=== PATIENT | female | born 1985 | race Caucasian/White ===

== ENCOUNTER 2017-08-10 09:29 | Emergency (ER) | payer OTHER, SELFPAY ==
[2017-08-10] MEDS ORDERED: ASPIRIN 81 MG CHEWABLE TABLET ONE (10:15)
[2017-08-10 10:35] LABS: Absolute Lymphocytes (CBC) 2.1 K/uL (0.7-4.9); Absolute Monocytes 0.5 K/uL (0.1-1.3); Absolute Neutrophil 5.7 K/uL (1.8-8.0); Basophils % 0.8 % (0-1.3); Eosinophils % 1.8 % (0-4.4); Hematocrit 45.3 % (36.0-45.0); Lymphocytes % 24.5 % (15.3-44.8); MCH 30.7 pg (27.0-35.0); MCV 91.3 fL (80-100); MPV 9.7 fL (7.6-11.3); Monocytes % 6.1 % (3.3-12.3); RBC Red Blood Cell Count 4.96 M/uL (3.86-4.86)
--- NOTE | 2017-08-10 10:38 | RAD REPORT ---
EXAM DESCRIPTION: RAD - Chest Single View - 08/10/2017 10:09 am CLINICAL HISTORY: Chest pain. COMPARISON: None. FINDINGS: Portable technique limits examination quality. The lungs are grossly clear. The heart is normal in size. No displaced fractures. IMPRESSION: No acute intrathoracic process suspected.
[2017-08-10 10:42] LABS: Protime INR 0.97
[2017-08-10 10:46] LABS: Bicarbonate 26 mEq/L (21-31); Glucose Level 91 mg/dL (65-120); Potassium 3.9 mEq/L (3.6-5.0); Sodium Level 136 mEq/L (135-145)
[2017-08-10 10:52] LABS: ALT/SGPT 13 IU/L (10-60); AST/SGOT 17 IU/L (10-42); Albumin 4.3 g/dL (3.2-5.5); Alkaline Phosphatase 55 IU/L (42-121); BUN Blood Urea Nitrogen 13 mg/dL (6-20); Bilirubin Direct 0.1 mg/dL (0-0.2); Bilirubin Total 0.7 mg/dL (0.3-1.2); Glomerular Filtration Rate > 90 mL/min (=/>90); Magnesium 1.8 mg/dL (1.8-2.5); Protein, Total 8.2 g/dL (6.0-8.3)
[2017-08-10] MEDS ORDERED: MAGNE/ALUM HYDROXD 30 ML UCUP ONE (13:16)
[2017-08-10] MEDS ORDERED: LIDOCAINE VISCOUS 2% SOLN 15 ML UDC ONE (13:16)
--- NOTE | 2017-08-10 13:54 | ER ---
Nurse's Notes [facility] Name: Joe Manley Age: 32 yrs Sex: Female : 1985 Arrival Date: 08/10/2017 Time: 09:30 Bed 14 Private MD: Diagnosis: Chest pain, unspecified Presentation: 08/10 09:50 Presenting complaint: Patient states: "at 9pm last night I felt a burning in my chest ss that lasted for about three seconds, followed by a pressure that seems to radiate down my L arm and into my shoulders.". Transition of care: patient was not received from another setting of care. Onset of symptoms was August 09, 2017 at 20:00. Care prior to arrival: None. 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 - Social history:: Smoking status: Patient uses tobacco products, smokes one-half pack cigarettes per day. Screenin:50 Abuse screen: Denies threats or abuse. Nutritional screening: No deficits noted. rb1 Tuberculosis screening: No symptoms or risk factors identified. Fall Risk None identified. Assessment: 09:50 General: Appears in no apparent distress. comfortable, Behavior is calm, cooperative, rb1 Denies fever. Pain: Complains of pain in mid-sternal area Pain radiates to left arm and between shoulder blades Pain currently is 7 out of 10 on a pain scale. Pain began 2100 last night. Neuro: Level of Consciousness is awake, alert, obeys commands, Oriented to person, place, time, situation. Cardiovascular: Capillary refill < 3 seconds is brisk in bilateral fingers. Respiratory: Airway is patent Respiratory effort is even, unlabored, Respiratory pattern is regular, symmetrical. GI: Reports nausea. : No signs and/or symptoms were reported regarding the genitourinary system. Derm: Skin is pink, warm \\T\\ dry. 10:49 Reassessment: Patient appears in no apparent distress at this time. No changes from rb1 previously documented assessment. 11:46 Reassessment: Patient appears in no apparent distress at this time. Patient and/or rb1 family updated on plan of care and expected duration. Pain level reassessed. Patient is alert, oriented x 3, equal unlabored respirations, skin warm/dry/pink. 12:47 Reassessment: Patient appears in no apparent distress at this time. No changes from rb1 previously documented assessment. Pt. updated on the POC. 13:45 Reassessment: Patient appears in no apparent distress at this time. Patient and/or rb1 family updated on plan of care and expected duration. Pain level reassessed. Patient is alert, oriented x 3, equal unlabored respirations, skin warm/dry/pink. Vital Signs: 09:50 BP 121 / 78; Pulse 68; Resp 17; Temp 98.0(O); Pulse Ox 100% on R/A; Weight 68.04 kg rb1 (R); Height 5 ft. 3 in. (160.02 cm) (R); Pain 7/10; 10:30 BP 119 / 84; Pulse 70; Resp 16; Pulse Ox 98% on R/A; Pain 7/10; rb1 11:30 BP 116 / 78; Pulse 66; Resp 12; Pulse Ox 100% on R/A; rb1 12:30 BP 119 / 86; Pulse 80; Resp 17; Pulse Ox 99% on R/A; rb1 13:00 BP 127 / 85; Pulse 74; Resp 13; Pulse Ox 100% on R/A; rb1 14:00 BP 132 / 90; Pulse 81; Resp 16; Pulse Ox 96% on R/A; rb1 09:50 Body Mass Index 26.57 (68.04 kg, 160.02 cm) [facility] ED Course: 09:30 Patient arrived in ED. as 09:46 Reilly Vegas PA is PHCP. jr8 09:46 Yrn Dunham MD is Attending Physician. jr8 09:50 Patient has correct armband on for positive identification. Placed in gown. Bed in low rb1 position. Call light in reach. Side rails up X 1. shelter monitor on. Pulse ox on. NIBP on. 09:50 Missed attempt(s): 22 gauge in right antecubital area. Patient maintains SpO2 rb1 saturation greater than 95% on room air. 09:51 Triage completed. ss 09:53 Renita Rosenthal, RN is Primary Nurse. rb1 09:56 Arm band placed on right wrist. ss 10:04 EKG done, by refinery technician. reviewed by Reilly ANDINO. tc 10:05 X-ray completed. Portable x-ray completed in exam room. Patient tolerated procedure sw well. 10:09 XRAY Chest (1 view) In Process Unspecified. EDMS 10:31 Basic Metabolic Panel Sent. ag 10:31 Basic Metabolic Panel Sent. ag 10:31 BNP Sent. ag 10:31 CBC with Diff Sent. ag 10:31 LFT's Sent. ag 10:31 Magnesium Sent. ag 10:31 PT-INR Sent. ag 10:31 Ptt, Activated Sent. ag 10:31 Troponin (emerg Dept Use Only) Sent. ag 10:32 Inserted saline lock: 20 gauge in left antecubital area, using aseptic technique. Blood ag collected. 13:53 Hong Mustafa MD is Referral Physician. jr8 14:16 No provider procedures requiring assistance completed. IV discontinued, intact, rb1 bleeding controlled, No redness/swelling at site. Pressure dressing applied. Administered Medications: 09:56 Drug: Aspirin Chewable Tablet 324 mg Route: PO; rb1 10:30 Follow up: Response: No adverse reaction; Pain is unchanged, physician notified rb1 12:55 Drug: GI Cocktail without - (Maalox Suspension 30 ml, Lidocaine Liquid 2 % 15 rb1 ml) Route: PO; 13:20 Follow up: Response: No adverse reaction rb1 Outcome: 13:53 Discharge ordered by . jr8 14:16 Discharged to home ambulatory. rb1 14:16 Condition: stable 14:16 Discharge instructions given to patient, Instructed on discharge instructions, follow up and referral plans. medication usage, Demonstrated understanding of instructions, follow-up care, Prescriptions given X none 14:17 Patient left the ED. rb1 Signatures: Dispatcher [employer] Tina Forbes Shelby, RN RN Reilly Vegas PA PA jr8 Tatiana Espinoza, line puller EKG Ttc Wynne, Susie Alvarez Rebecca, RN RN rb1 Corrections: (The following items were deleted from the chart) 14:13 12:45 Blood Glucose: Blood Glucose Reading=87 mg/dL. rb1 rb1
--- NOTE | 2017-08-10 13:54 | EDPHYS ---
Physician Documentation [facility] Name: Joe Manley Age: 32 yrs Sex: Female : 1985 Arrival Date: 08/10/2017 Time: 09:30 Bed 14 Private MD: ED Physician Yrn Dunham HPI: 08/10 10:11 This 32 yrs old Female presents to ER via Ambulatory with complaints of Chest jr8 Pain. 10:11 The patient or guardian reports chest pain that is located primarily in the substernal jr8 area. The pain radiates to the left arm, left jaw. Associated signs and symptoms: Pertinent positives: nausea. The chest pain is described as burning, a pressure. Duration: The patient or guardian reports a single episode, that is still ongoing. Modifying factors: The symptoms are alleviated by nothing. the symptoms are aggravated by nothing. Severity of pain: At its worst the pain was moderate in the emergency department the pain is unchanged. The patient has not experienced similar symptoms in the past. The patient has not recently seen a physician. 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 - Social history:: Smoking status: Patient uses tobacco products, smokes one-half pack cigarettes per day. ROS: 10:11 Eyes: Negative for injury, pain, redness, and discharge, ENT: Negative for injury, jr8 pain, and discharge, Neck: Negative for injury, pain, and swelling, Respiratory: Negative for shortness of breath, cough, wheezing, and pleuritic chest pain, Back: Negative for injury and pain, MS/Extremity: Negative for injury and deformity, Skin: Negative for injury, rash, and discoloration, Neuro: Negative for headache, weakness, numbness, tingling, and seizure. 10:11 Cardiovascular: Positive for chest pain, Negative for edema, orthopnea, palpitations, paroxysmal nocturnal dyspnea. 10:11 Abdomen/GI: Positive for nausea, Negative for abdominal pain, vomiting, diarrhea, constipation, abdominal cramps, abdominal distension, anorexia, dysphagia, hematemesis, black/tarry stool, rectal pain, rectal bleeding, bowel incontinence, flatulence. Exam: 10:11 Eyes: Pupils equal round and reactive to light, extra-ocular motions intact. Lids and jr8 lashes normal. Conjunctiva and sclera are non-icteric and not injected. Cornea within normal limits. Periorbital areas with no swelling, redness, or edema. ENT: Nares patent. No nasal discharge, no septal abnormalities noted. Tympanic membranes are normal and external auditory canals are clear. Oropharynx with no redness, swelling, or masses, exudates, or evidence of obstruction, uvula midline. Mucous membranes moist. Neck: Trachea midline, no thyromegaly or masses palpated, and no cervical lymphadenopathy. Supple, full range of motion without nuchal rigidity, or vertebral point tenderness. No Meningismus. Chest/axilla: Normal chest wall appearance and motion. Nontender with no deformity. No lesions are appreciated. Cardiovascular: Regular rate and rhythm with a normal S1 and S2. No gallops, murmurs, or rubs. Normal PMI, no JVD. No pulse deficits. Respiratory: Lungs have equal breath sounds bilaterally, clear to auscultation and percussion. No rales, rhonchi or wheezes noted. No increased work of breathing, no retractions or nasal flaring. Abdomen/GI: Soft, non-tender, with normal bowel sounds. No distension or tympany. No guarding or rebound. No evidence of tenderness throughout. Back: No spinal tenderness. No costovertebral tenderness. Full range of motion. Skin: Warm, dry with normal turgor. Normal color with no rashes, no lesions, and no evidence of cellulitis. MS/ Extremity: Pulses equal, no cyanosis. Neurovascular intact. Full, normal range of motion. Neuro: Awake and alert, GCS 15, oriented to person, place, time, and situation. Cranial nerves II-XII grossly intact. Motor strength 5/5 in all extremities. Sensory grossly intact. Cerebellar exam normal. Normal gait. Vital Signs: 09:50 BP 121 / 78; Pulse 68; Resp 17; Temp 98.0(O); Pulse Ox 100% on R/A; Weight 68.04 kg rb1 (R); Height 5 ft. 3 in. (160.02 cm) (R); Pain 7/10; 10:30 BP 119 / 84; Pulse 70; Resp 16; Pulse Ox 98% on R/A; Pain 7/10; rb1 11:30 BP 116 / 78; Pulse 66; Resp 12; Pulse Ox 100% on R/A; rb1 12:30 BP 119 / 86; Pulse 80; Resp 17; Pulse Ox 99% on R/A; rb1 13:00 BP 127 / 85; Pulse 74; Resp 13; Pulse Ox 100% on R/A; rb1 14:00 BP 132 / 90; Pulse 81; Resp 16; Pulse Ox 96% on R/A; rb1 09:50 Body Mass Index 26.57 (68.04 kg, 160.02 cm) rb1 MDM: 09:46 Patient medically screened. jr8 13:49 Data reviewed: vital signs, nurses notes, lab test result(s), EKG, radiologic studies, jr8 plain films, and as a result, I will discharge patient. Data interpreted: Pulse oximetry: on room air is 100 %. Interpretation: normal. Counseling: I had a detailed discussion with the patient and/or guardian regarding: the historical points, exam findings, and any diagnostic results supporting the discharge/admit diagnosis, lab results, radiology results, the need for outpatient follow up, a medication administration professional, a family practitioner, to return to the emergency department if symptoms worsen or persist or if there are any questions or concerns that arise at home. ED course: First set of cardiac enzymes were normal. No acute findings on other labs, images, or EKG. Explained to patient that we need to repeat enzymes. If normal and she is feeling well can go home to f/u with Cardiology and PCP. If she were to worsen to come back for further evaluation and admission. Patient understood and would follow instructions. . ED course: Patient upset and no longer wants to wait for results. Stated that she is having work problems and needs to leave. Patient understands that we cannot fully r/o potential cardiac causes without seing second troponin. Patient understood but still needs to leave. Would come back if worse . 08/10 09:53 Order name: Basic Metabolic Panel jr8 03/29 09:53 Order name: BNP; Complete Time: 11:12 08/10 09:53 Order name: CBC with Diff; Complete Time: 10:42 08/10 09:53 Order name: LFT's; Complete Time: 11:06 08/10 09:53 Order name: Magnesium; Complete Time: 11:06 08/10 09:53 Order name: PT-INR; Complete Time: 11:08/10 09:53 Order name: Ptt, Activated; Complete Time: 11:06 08/10 09:53 Order name: Troponin (emerg Dept Use Only); Complete Time: 11:08/10 09:53 Order name: XRAY Chest (1 view); Complete Time: 10:42 08/10 09:53 Order name: EKG; Complete Time: 09:54 08/10 09:54 Order name: Basic Metabolic Panel; Complete Time: 11:06 [facility] 08/10 12:52 Order name: Troponin (emerg Dept Use Only); Complete Time: 13:53 08/10 09:53 Order name: Cardiac monitoring; Complete Time: 10:08/10 09:53 Order name: EKG - Nurse/Tech; Complete Time: 10:08/10 09:53 Order name: IV Saline Lock; Complete Time: 10:30 08/10 09:53 Order name: Labs collected and sent; Complete Time: 10:31 08/10 09:53 Order name: O2 Per Protocol; Complete Time: 10:13 08/10 09:53 Order name: O2 Sat Monitoring; Complete Time: 10:08/10 09:53 Order name: Urine Dipstick-Ancillary (obtain specimen); Complete Time: 14:16 Administered Medications: 09:56 Drug: Aspirin Chewable Tablet 324 mg Route: PO; rb1 10:30 Follow up: Response: No adverse reaction; Pain is unchanged, physician notified rb1 12:55 Drug: GI Cocktail without - (Maalox Suspension 30 ml, Lidocaine Liquid 2 % 15 rb1 ml) Route: PO; 13:20 Follow up: Response: No adverse reaction rb1 Disposition: 14:47 Co-signature as Attending Physician, Yrn Dunham MD. Disposition: 08/10/17 13:53 Discharged to Home. Impression: Chest pain, unspecified. - Condition is Stable. - Discharge Instructions: Nonspecific Chest Pain, Aspirin and Your Heart, Chest Pain Observation. - Medication Reconciliation Form, Thank You Letter, Antibiotic Education, Prescription Opioid Use form. - Follow up: Hong Mustafa MD; When: 2 - 3 days; Reason: Recheck today's complaints, Continuance of care, Re-evaluation by your physician. - Problem is new. - Symptoms have improved. Signatures: Dispatcher [employer] EDMS Rosibel Smith RN RN Reilly Vegas PA PA jr8 Renita Rosenthal RN RN [facility] Yrn Dunham MD MD
--- NOTE | 2017-08-10 16:28 | EKG ---
Test Date: 2017-08-10 Test Time: 09:58:13 [employer] Director: JOSE ANGEL MEASUREMENT RESULTS: Intervals: Rate: 71 IN: 140 QRSD: 90 QT: 400 QTc: 434 [place]: P: 68 IN: 140 QRS: 54 T: 47 INTERPRETIVE STATEMENTS: Normal sinus rhythm Normal ECG Compared to ECG 08/29/2010 18:26:17 No significant changes Electronically Signed On 08-10-17 16:27:33 CDT by Ben Enriquze
== END 2017-08-10 14:17 | disposition home or self-care (01) ==
LOC: ER 09:29
DX: R07.9 Chest pain, unspecified (principal); E03.9 Hypothyroidism, unspecified; F17.210 Nicotine dependence, cigarettes, uncomplicated; Z88.2 Allergy status to sulfonamides
CPT/HCPCS: 36415; 71045; 80048; 80076; 83735; 83880; 84484; 85025; 85610; 85730; 93005; 99285

== ENCOUNTER 2018-12-10 13:21 | Emergency (ER) | payer SELFPAY ==
[2018-12-10] MEDS ORDERED: DIAZEPAM 5 MG TABLET ONE (14:51)
[2018-12-10] MEDS ORDERED: KETOROLAC 30 MG/ML INJ ONE (14:51)
--- NOTE | 2018-12-10 15:23 | ER ---
Nurse's Notes [facility] Name: Joe Manley Age: 33 yrs Sex: Female : 1985 Arrival Date: 12/10/2018 Time: 13:30 Bed 28 Private MD: Diagnosis: Low back pain Presentation: 12/10 13:34 Presenting complaint: Patient states: she was picking up something in [facility] when she wh felt severe back pain. Pt states this has happened to her once in 2017 where her back was hurt. Pain is 9/10 in scale. Transition of care: patient was not received from another setting of care. Onset of symptoms was December 10, 2018. Risk Assessment: Do you want to hurt yourself or someone else? Patient reports no desire to harm self or others. Initial Sepsis Screen: Does the patient meet any 2 criteria? No. Patient's initial sepsis screen is negative. Does the patient have a suspected source of infection? No. Patient's initial sepsis screen is negative. Care prior to arrival: None. 13:34 Method Of Arrival: EMS: [facility] 13:34 Acuity: GABRIELLE 3 Triage Assessment: 13:39 General: Appears in no apparent distress. uncomfortable. 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 - Social history:: Smoking status: Patient/guardian denies using tobacco. - Ebola Screening: : Patient negative for fever greater than or equal to 101.5 degrees Fahrenheit, and additional compatible Ebola Virus Disease symptoms Patient denies exposure to infectious person. Screenin:36 Abuse screen: Denies threats or abuse. Denies injuries from another. Nutritional screening: No deficits noted. Tuberculosis screening: No symptoms or risk factors identified. Fall Risk None identified. Assessment: 13:39 General: Appears in no apparent distress. uncomfortable, Behavior is calm, cooperative, appropriate for age. Pain: Complains of pain in lower back Pain does not radiate. Pain currently is 9 out of 10 on a pain scale. Quality of pain is described as aching, Pain began 30 min ago. Aggravated by movement. Neuro: Level of Consciousness is awake, alert, obeys commands, Oriented to person, place, time, situation, Appropriate for age. Cardiovascular: Capillary refill < 3 seconds. Respiratory: Airway is patent Respiratory effort is even, unlabored, Respiratory pattern is regular, symmetrical. GI: Abdomen is flat, Abd is soft and non tender X 4 quads. : No signs and/or symptoms were reported regarding the genitourinary system. EENT: No signs and/or symptoms were reported regarding the EENT system. Derm: Skin is intact, is healthy with good turgor, Skin is pink, warm \T\ dry. normal. Musculoskeletal: Range of motion: intact in all extremities. 14:47 Reassessment: Patient appears in no apparent distress at this time. Patient and/or wh family updated on plan of care and expected duration. Pain level reassessed. Patient is alert, oriented x 3, equal unlabored respirations, skin warm/dry/pink. Pt still in pain no change. 15:50 Reassessment: Patient appears in no apparent distress at this time. Patient and/or wh family updated on plan of care and expected duration. Pain level reassessed. Patient is alert, oriented x 3, equal unlabored respirations, skin warm/dry/pink. Pt still in Pain notified POTTERY STRIPER [place]. 16:47 Reassessment: Patient appears in no apparent distress at this time. Patient and/or wh family updated on plan of care and expected duration. Pain level reassessed. Patient is alert, oriented x 3, equal unlabored respirations, skin warm/dry/pink. Additional order for imaging done.. 17:52 Reassessment: Patient appears in no apparent distress at this time. Patient and/or wh family updated on plan of care and expected duration. Pain level reassessed. Patient is alert, oriented x 3, equal unlabored respirations, skin warm/dry/pink. Patient states feeling better. Vital Signs: 13:38 BP 119 / 78; Pulse 78; Resp 18; Temp 97.9; Pulse Ox 97% on R/A; wh 14:47 BP 120 / 78; Pulse 74; Resp 18; Pulse Ox 100% on R/A; wh 15:30 BP 114 / 72; Pulse 87; Resp 16; Pulse Ox 100% on R/A; wh 16:30 BP 122 / 78; Pulse 85; Resp 18; Pulse Ox 100% on R/A; 18:00 BP 119 / 79; Pulse 90; Resp 18; Pulse Ox 97% on R/A; ED Course: 13:30 Patient arrived in ED. jp3 13:34 Rubén Keane is Primary Nurse. 13:36 Triage completed. 13:37 Arm band placed on right wrist. 13:38 Patient has correct armband on for positive identification. Bed in low position. Call light in reach. Side rails up X 1. Pulse ox on. NIBP on. 14:04 Eden Valdes FNP-C is PHCP. snw 14:04 Gray Joseph MD is Attending Physician. snw 16:33 Lumbar Spine (3 Views) XRAY In Process Unspecified. EDMS 17:43 PHCP role handed off by Eden Valdes FNP-C cp 17:43 Peng Cevallos PA is PHCP. cp 17:48 PHCP role handed off by Peng Cevallos PA snw 17:48 Eden Valdes FNP-C is PHCP. snw 18:20 No provider procedures requiring assistance completed. Patient did not have IV access during this emergency room visit. Administered Medications: 14:21 CANCELLED (other intervention used): Flexeril 10 mg PO once snw 14:40 Drug: TORadol 30 mg Route: IM; Site: right deltoid; 18:15 Follow up: Response: No adverse reaction 14:40 Drug: Valium 5 mg Route: PO; 18:15 Follow up: Response: No adverse reaction 17:08 Drug: fentaNYL (PF) 50 mcg Route: IM; Site: left deltoid; 18:14 Follow up: Response: No adverse reaction Outcome: 15:22 Discharge ordered by . snw 17:47 Discharge ordered by . snw 18:15 Patient left the ED. 18:20 Discharged to home via wheelchair, with family. 18:20 Condition: improved 18:20 Discharge instructions given to patient, Instructed on discharge instructions, follow up and referral plans. no drinking with medication, no driving heavy equipment, medication usage, POC Back Pain Demonstrated understanding of instructions, follow-up care, medications, POC Prescriptions given X 3. Signatures: Dispatcher [employer] EDMS Eden Valdes, BRUNA-C PAINTER ASSISTANT-Csnw Peng Cevallos PA PA cp [place], Winsy Ashish Cabrera jp3 Corrections: (The following items were deleted from the chart) 18:20 14:47 Reassessment: Patient appears in no apparent distress at this time. Patient wh and/or family updated on plan of care and expected duration. Pain level reassessed. Patient is alert, oriented x 3, equal unlabored respirations, skin warm/dry/pink. 18:20 15:50 Reassessment: Patient appears in no apparent distress at this time. Patient wh and/or family updated on plan of care and expected duration. Pain level reassessed. Patient is alert, oriented x 3, equal unlabored respirations, skin warm/dry/pink. 18:20 16:47 Reassessment: Patient appears in no apparent distress at this time. Patient wh and/or family updated on plan of care and expected duration. Pain level reassessed. Patient is alert, oriented x 3, equal unlabored respirations, skin warm/dry/pink.
--- NOTE | 2018-12-10 15:24 | EDPHYS ---
Physician Documentation [facility] Name: Joe Manley Age: 33 yrs Sex: Female : 1985 Arrival Date: 12/10/2018 Time: 13:30 Bed 28 Private MD: ED Physician Gray Joseph HPI: 12/10 14:40 This 33 yrs old Female presents to ER via EMS with complaints of back pain. snw 14:40 The patient presents with pain that is acute, and decreased range of motion. The snw symptoms are located in the low back. Onset: The symptoms/episode began/occurred suddenly, just prior to arrival. The pain does not radiate. The problem was sustained when bending over, at work. Modifying factors: The patient symptoms are alleviated by nothing, the patient symptoms are aggravated by movement. Severity of symptoms: At their worst the symptoms were moderate, severe. The patient has experienced similar episodes in the past. The patient has not recently seen a physician. 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 - Social history:: Smoking status: Patient/guardian denies using tobacco. - Ebola Screening: : Patient negative for fever greater than or equal to 101.5 degrees Fahrenheit, and additional compatible Ebola Virus Disease symptoms Patient denies exposure to infectious person. ROS: 14:40 Constitutional: Negative for fever, chills, and weight loss, Eyes: Negative for injury, snw pain, redness, and discharge, ENT: Negative for injury, pain, and discharge, Neck: Negative for injury, pain, and swelling, Cardiovascular: Negative for chest pain, palpitations, and edema, Respiratory: Negative for shortness of breath, cough, wheezing, and pleuritic chest pain, Abdomen/GI: Negative for abdominal pain, nausea, vomiting, diarrhea, and constipation, : Negative for injury, bleeding, discharge, and swelling, MS/Extremity: Negative for injury and deformity, Skin: Negative for injury, rash, and discoloration, Neuro: Negative for headache, weakness, numbness, tingling, and seizure. 14:40 Back: Positive for decreased range of motion, pain at rest, pain with movement. Exam: 14:39 Constitutional: This is a well developed, well nourished patient who is awake, alert, snw and in no acute distress. Head/Face: Normocephalic, atraumatic. Eyes: Pupils equal round and reactive to light, extra-ocular motions intact. Lids and lashes normal. Conjunctiva and sclera are non-icteric and not injected. Cornea within normal limits. Periorbital areas with no swelling, redness, or edema. ENT: Nares patent. No nasal discharge, no septal abnormalities noted. Tympanic membranes are normal and external auditory canals are clear. Oropharynx with no redness, swelling, or masses, exudates, or evidence of obstruction, uvula midline. Mucous membranes moist. Neck: Trachea midline, no thyromegaly or masses palpated, and no cervical lymphadenopathy. Supple, full range of motion without nuchal rigidity, or vertebral point tenderness. No Meningismus. Chest/axilla: Normal chest wall appearance and motion. Nontender with no deformity. No lesions are appreciated. Cardiovascular: Regular rate and rhythm with a normal S1 and S2. No gallops, murmurs, or rubs. Normal PMI, no JVD. No pulse deficits. Respiratory: Lungs have equal breath sounds bilaterally, clear to auscultation and percussion. No rales, rhonchi or wheezes noted. No increased work of breathing, no retractions or nasal flaring. Abdomen/GI: Soft, non-tender, with normal bowel sounds. No distension or tympany. No guarding or rebound. No evidence of tenderness throughout. Skin: Warm, dry with normal turgor. Normal color with no rashes, no lesions, and no evidence of cellulitis. MS/ Extremity: Pulses equal, no cyanosis. Neurovascular intact. Full, normal range of motion. Neuro: Awake and alert, GCS 15, oriented to person, place, time, and situation. Cranial nerves II-XII grossly intact. Motor strength 5/5 in all extremities. Sensory grossly intact. Cerebellar exam normal. Normal gait. Psych: Awake, alert, with orientation to person, place and time. Behavior, mood, and affect are within normal limits. 14:39 Back: pain, that is moderate, of the low back area, ROM is painful, with flexion, CVA tenderness, is absent. Vital Signs: 13:38 BP 119 / 78; Pulse 78; Resp 18; Temp 97.9; Pulse Ox 97% on R/A; wh 14:47 BP 120 / 78; Pulse 74; Resp 18; Pulse Ox 100% on R/A; wh 15:30 BP 114 / 72; Pulse 87; Resp 16; Pulse Ox 100% on R/A; wh 16:30 BP 122 / 78; Pulse 85; Resp 18; Pulse Ox 100% on R/A; wh 18:00 BP 119 / 79; Pulse 90; Resp 18; Pulse Ox 97% on R/A; MDM: 14:04 Patient medically screened. snw 15:24 Data reviewed: vital signs, nurses notes. Data interpreted: Pulse oximetry: on room air snw is 100 %. Interpretation: normal. Counseling: I had a detailed discussion with the patient and/or guardian regarding: the historical points, exam findings, and any diagnostic results supporting the discharge/admit diagnosis, the need for outpatient follow up, to return to the emergency department if symptoms worsen or persist or if there are any questions or concerns that arise at home. Special discussion: Based on the history and exam findings, there is no indication for further emergent testing or inpatient evaluation. I discussed with the patient/guardian the need to see the neurologist for further evaluation of the symptoms. I discussed with the patient/guardian the need to see the primary care provider for further evaluation of the symptoms. 17:00 Response to treatment: pt unsatisfied with treatment plan, discussed reasoning, with snw lack of perceived results I asked pt if what had worked in the past was Morphine, I would be happy to order that. She stated, "you're the one with the Masters' degree, if that is what you would suggest". 12/10 15:44 Order name: Lumbar Spine (3 Views) XRAY; Complete Time: 16:50 snw Administered Medications: 14:21 CANCELLED (other intervention used): Flexeril 10 mg PO once snw 14:40 Drug: TORadol 30 mg Route: IM; Site: right deltoid; 18:15 Follow up: Response: No adverse reaction 14:40 Drug: Valium 5 mg Route: PO; 18:15 Follow up: Response: No adverse reaction 17:08 Drug: fentaNYL (PF) 50 mcg Route: IM; Site: left deltoid; 18:14 Follow up: Response: No adverse reaction Disposition: 12/11 07:34 Co-signature as Attending Physician, Gray Joseph MD I agree with the assessment and kdr plan of care. Disposition: 12/10/18 17:47 Discharged to Home. Impression: Low back pain. - Condition is Stable. - Discharge Instructions: Back Pain, Adult, Musculoskeletal Pain, Back Injury Prevention, [id number], Back Exercises, [id number], Cryotherapy, Rehydration, Adult, Heat Therapy. - Prescriptions for Ultram 50 mg Oral Tablet - take 1 tablet by ORAL route every 6 hours As needed; 12 tablet. Diclofenac Sodium 75 mg Oral Tablet Sustained Release - take 1 tablet by ORAL route 2 times per day; 30 tablet. orphenadrine citrate 100 mg Oral Tablet Sustained Release - take 1 tablet by ORAL route 2 times per day As needed; 20 tablet. - Work release form, Medication Reconciliation Form, Thank You Letter, Antibiotic Education, Prescription Opioid Use form. - Follow up: Private Physician; When: 1 - 2 days; Reason: Recheck today's complaints, Continuance of care, Re-evaluation by your physician. Follow up: Emergency Department; When: As needed; Reason: Worsening of condition. Signatures: Dispatcher [employer] EDRI Gray Joseph MD MD kdr Therrien, Shelly, ROOF SERVICE TECHNICIAN-C ROOF SERVICE TECHNICIAN-Csnw Rubén Keane Corrections: (The following items were deleted from the chart) 12/10 14:00 13:58 Wrist Left 3 View+RAD.RAD.BRZ ordered. EDRI EDMS 14:21 14:20 Flexeril 10 mg PO once ordered. snw snw 17:44 15:22 12/10/2018 15:22 Discharged to Home. Impression: Low back pain. Condition is snw Stable. Forms are Medication Reconciliation Form, Thank You Letter, Antibiotic Education, Prescription Opioid Use. Follow up: Private Physician; When: 1 - 2 days; Reason: Recheck today's complaints, Continuance of care, Re-evaluation by your physician. Follow up: Emergency Department; When: As needed; Reason: Worsening of condition. snw 18:15 17:47 12/10/2018 17:47 Discharged to Home. Impression: Low back pain. Condition is wh Stable. Prescriptions for Ultram 50 mg Oral Tablet - take 1 tablet by ORAL route every 6 hours As needed; 12 tablet, Prednisone 20 mg Oral Tablet - take 2 tablet by ORAL route once daily for 5 days; 10 tablet, orphenadrine citrate 100 mg Oral Tablet Sustained Release - take 1 tablet by ORAL route 2 times per day As needed; 20 tablet. and Forms are Medication Reconciliation Form, Thank You Letter, Antibiotic Education, Prescription Opioid Use. Follow up: Private Physician; When: 1 - 2 days; Reason: Recheck today's complaints, Continuance of care, Re-evaluation by your physician. Follow up: Emergency Department; When: As needed; Reason: Worsening of condition. lara
--- NOTE | 2018-12-10 16:46 | RAD REPORT ---
EXAM DESCRIPTION: RAD - Lumbar Spine 3 Views - 12/10/2018 4:30 pm CLINICAL HISTORY: Back pain FINDINGS: The alignment of the lumbar spine is satisfactory. No fracture or dislocation is seen. Very minimal spondylosis L5-S1
[2018-12-10] MEDS ORDERED: FENTANYL CITR 100 MCG/2 ML ONE (17:22)
== END 2018-12-10 18:15 | disposition home or self-care (01) ==
LOC: ER 13:21
DX: M54.5 Low back pain (principal); E03.9 Hypothyroidism, unspecified; Z88.2 Allergy status to sulfonamides
CPT/HCPCS: 72100; 96372; 99284; J3010